=== PATIENT | female | born 1980 | race Caucasian/White ===

== ENCOUNTER → 2021-09-07 14:05 | Outpatient (CLI) | payer OTHER, SELFPAY ==
[2021-09-07 15:17] LABS: COVID19 -Nasal RAPID Negative (Negative)
== END ==
PROVIDERS: PCP Family Medicine; Visit Provider Obstetrics & Gynecology
DX: Z01.812 Encounter for preprocedural laboratory examination (principal); Z20.822 Contact with and (suspected) exposure to COVID-19
CPT/HCPCS: 87635

== ENCOUNTER 2021-09-08 12:17 | Day surgery (SDC) | payer OTHER, SELFPAY ==
--- NOTE | 2021-09-08 | PATH_ITS ---
[facility] Accession Number: [id number] . 01 Material submitted: . PART A: endocervix - ENDOCERVICAL CURETTING PART B: endometrium - ENDOMETRIAL CURETTING . 02 Diagnosis: A. Endocervical Curetting: Portions of lower uterine segment and strips of glandular epithelium, possibly from endocervix; negative for dysplasia or malignancy. . B. Endometrial Curetting: Portions of disordered proliferative endometrium; negative for glandular hyperplasia, cytologic atypia, or malignancy. [facility] 09/13/2021 1550 Local . 02 Electronically signed: . Augusta Escalante MD, Pathologist NPI- [id number] . 01 Gross description: . Part A: ENDOCERVICAL CURETTING: Received in formalin are minute fragments of mucoid and hemorrhagic material measuring 0.3 x 0.3 x 0.2 cm in aggregate. Submitted in toto in 1 cassette. Part B: ENDOMETRIAL CURETTING: Received in formalin are minute fragments of mucoid and hemorrhagic material measuring 1.0 x 1.0 x 0.4 cm in aggregate. Submitted in toto in 1 cassette. /GEORGE 09/10/2021 0001 Local . 02 Pathologist provided ICD-10: N92.1 . 02 CPT . 004243, [id number] Specimen Comment: A courtesy copy of this report has been sent to [phone] Performed at: 01 [facility] [address] Formerly named [facility], [place], [place] [id number] MD Alli Ribeiro MD Phone: [phone] Performed at: [address] [facility] [address] , [place], [place] [id number] MD Maryuri Schafer MD Phone: [phone]
[2021-09-08] MEDS: LACTATED RINGERS 1,000 ML 42 ML IV (12:50)
[2021-09-08 13:02] VITALS: BP 156/102; PULSE 110; RESP 18; TEMP 37.4; BMI 47.0
--- NOTE | 2021-09-08 13:18 | SUR.OPER ---
Lithotomy on padded OR bed, head on pillow, arms secured on padded arm boards at <90 degrees abduction. Legs secured in padded yellow fins stirrups.
--- NOTE | 2021-09-08 13:23 | PM.PREOP ---
Pre-operative Note COVID-19 COVID-19 status: Negative Result date/Date tested (Pos, Neg/Pending): 09/07/21 Criteria for continued procedure: Non-surgical alternatives not available or appropriate per current SOC Interval Note History & Physical reviewed/Exam performed by Physician: Yes Changes to H&P: No
[2021-09-08 14:54] VITALS: BP 152/73; PULSE 85; RESP 18; TEMP 36.7; O2SAT 100
--- NOTE | 2021-09-08 14:56 | PM.GYNOP.1 ---
Operative Date/Time/Diagnoses Date of procedure: 09/08/21 Time of procedure: 14:10 Pre-op diagnosis: Menometrorrhagia Post-op diagnosis: same Procedure & Clinicians Procedure: Procedures Operation Date: 09/08/21 13:30 Actual Procedure Side Surgeon p Hysteroscopy with bx, D&C of uterus, Endometrial Ablation (Novasure) Aydin Lyons MD Indications: Amelia is a 41 year old , LMP 07/25/2021 who presented with a 5+ year history of progressively irregular and heavy periods.? Patient experienced menarche at age 14 and generally had regular menses up until about 2015 when she experienced a 2 month.? Resulting in severe anemia and near transfusion.? She had a D&C performed at that time it [facility] with some improvement afterwards but no records are available from to review.? Since 2015 and her D&C at that time, her periods have become increasingly unpredictable with the long intervals in between periods at times and episodes of twice or 3 times monthly bleeding.? Her bleeding is extremely heavy with overflows despite pads and tampons and she passes large clots at times.? Oral contraceptives were tried in 2015 but the patient had no benefit from them and had significant lower extremity edema.? Patient's most recent Pap is April 2021 and all prior Paps have been normal.? Contraception is by vasectomy.? Ultrasound performed at [facility] on 04/18/2021 showed the uterus to be anteverted, 8.5 x 5.6 x 6.4 cm with a heterogenous myometrium.? The endometrial stripe measured 13.5 mm, nabothian cysts were seen in the cervix and the ovaries, while normal sized, demonstrated multiple small cysts consistent with PCOS.? No cul-de-sac fluid was noted.? Endometrial biopsy performed 07/21/2021 shows portions of proliferative endometrium with very focal features of shedding, negative for glandular hyperplasia, cytologic atypia, or malignancy.? Some endometrial fragments demonstrated prominent vessel suggestive of polyp.? After consideration of all options patient has decided to proceed with hysteroscopy with possible biopsies, dilation and curettage of the uterus, and endometrial ablation via NovaSure.? Patient declines use of Mirena due to previous side effects with oral progestin therapy.? Patient presents today for her scheduled surgery. Surgeon: Aydin Lyons Anesthesia Type: General Operative Notes Findings: Thickened but bland, smotth surfaced endometrium without focal lesions. Cervix is parous w/o lesions. Closure Type: not applicable Specimen(s): endometrial curettings and other (Endocervical curettingsw) Estimated blood loss (mL): 10 Blood products transfused: none Procedure in detail: With the patient under satisfactory general LMA, in the modified dorsal lithotomy position, the perineum and vagina were prepped and draped in the usual fashion for hysteroscopy. A pre-surgical safety time-out was then taken in accordance with [facility] Main OR protocols. A bivalve speculum was inserted in the vagina and the anterior lip of the cervix grasped with a single-tooth tenaculum. The endocervical canal was then easily dilated to 6 mm and hysteroscope was placed through the endocervical canal into the endometrial cavity. Inspection of the endometrial cavity with sterile saline as a distention medium revealed the findings as noted above. Absent any focal lesions, no biopsies were taken but rather fractional curettage was then accomplished with abundant EMC and small amount of ECC submitted as separate pathologic specimens. Following the D and C the endometrial cavity was sounded with the NovaSure device and found to be 6.5 cm in depth with a with of 4.5 cm. After a successful cavity integrity test, the NovaSure ablation was initiated with a total ablation time of 1 minute 15 seconds and 149W utilized. Hysteroscopic reinspection of endometrial cavity showed excellent ablation effect and the scope was removed from the endometrial cavity. The tenaculum was then removed from the anterior lip the cervix and there was a small amount of bleeding noted from right side which was controlled with Allis clamps placed the site of puncture. Once complete hemostasis was assured the speculum was removed from the vagina and patient awakened from anesthesia. Patient was transferred to PACU for a period of observation and recovery having tolerated procedure. Complications: none Post-operative Condition: stable Disposition: PACU Plan for aftercare: Routine postoperative care. Follow-up will be in 2 weeks to review pathology with the patient.
[2021-09-08 14:59] VITALS: BP 126/79; PULSE 94; RESP 19; O2SAT 100
[2021-09-08 15:04] VITALS: BP 135/78; PULSE 92; RESP 17; O2SAT 99
[2021-09-08 15:12] VITALS: BP 152/80; PULSE 85; RESP 20; TEMP 36.6; O2SAT 100
== END 2021-09-08 15:33 | disposition home or self-care (01) ==
PROVIDERS: PCP Family Medicine; Referring Provider Obstetrics & Gynecology; Visit Provider Obstetrics & Gynecology
PROC: 0U5B8ZZ Destruction of Endometrium, Via Natural or Artificial Opening Endoscopic (ICD-10-PCS; CPT 58563; principal; 2021-09-08 13:30)
DX: N92.1 Excessive and frequent menstruation with irregular cycle (principal); J45.20 Mild intermittent asthma, uncomplicated; E66.9 Obesity, unspecified; Z68.42 Body mass index [BMI] 45.0-49.9, adult
CPT/HCPCS: 58563; 81025; J1100; J2405; J2704; J3010